=== PATIENT | male | born 1995 | race Caucasian/White ===

== ENCOUNTER 2024-08-05 21:29 | Emergency (ER) | payer BC ==
[~2024-08-05] VITALS: Ht 182.9 cm; Wt 109.1 kg
[2024-08-05 22:48] VITALS: BP 116/62; PULSE 86; RESP 20; TEMP 98.6; O2SAT 99
== END 2024-08-05 22:50 | disposition home or self-care (01) ==
LOC: ER 21:30
DX: Z04.1 Encounter for examination and observation following transport accident (principal); V89.2XXA Person injured in unspecified motor-vehicle accident, traffic, initial encounter; Y93.89 Activity, other specified; Y92.89 Other specified places as the place of occurrence of the external cause; Y99.8 Other external cause status
CPT/HCPCS: 99282